=== PATIENT | female | born 1980 ===

== ENCOUNTER 2024-07-13 08:13 | Emergency (ER) | payer OTHER ==
[~2024-07-13] VITALS: Ht 160 cm; Wt 77.1 kg
[2024-07-13] MEDS ORDERED: CEFTRIAXONE SODIUM 1,000 MG VIAL IV ONE (09:45)
[2024-07-13] MEDS ORDERED: KETOROLAC TROMETHAMINE 30 MG VIAL IV ONE (09:45)
[2024-07-13] MEDS ORDERED: FAMOtidine 10 MG/ML (4ML VIAL) IV PUSH ONE (09:45)
[2024-07-13] MEDS ORDERED: KETOROLAC TROMETHAMINE 30 MG VIAL ONE (10:03)
[2024-07-13] MEDS ORDERED: FAMOTIDINE/PF 20 MG/2 ML VIAL ONE (10:03)
[2024-07-13] MEDS ORDERED: CEFTRIAXONE SODIUM 1,000 MG VIAL ONE (10:04)
[2024-07-13 11:14] LABS: HEMATOCRIT 31.1 % (36.0-45.00); HEMOGLOBIN 9.6 g/dL (12.0-15.00); MEAN CELL VOLUME 63.5 fL (80.00-100.00); MEAN CORPUSCULAR HEMOGLOBIN 19.6 pg (27.00-32.0); MEAN CORPUSCULAR HGB CONC 30.8 g/dl (32.0-36.0); PLATELET COUNT 401 K/uL (150-450)
[2024-07-13 11:25] LABS: URINE APPEARANCE Clear; URINE BILIRRUBIN Negative (NEGATIVE); URINE BLOOD Negative; URINE COLOR Yellow; URINE GLUCOSE Negative (NEGATIVE); URINE KETONE Negative (NEGATIVE); URINE LEUKOCYTE Negative; URINE NITRATE Negative; URINE PROTEIN Negative (NEGATIVE); URINE UROBILINOGEN 0.2 E.U./dl
[2024-07-13 11:29] LABS: URINE BACTERIA 84.4 uL (0.0-1933); URINE RBC 5.7 uL (0.0-20.8); URINE WBC 2.8 uL (0.0-23.2)
[2024-07-13 12:11] LABS: URINE CAST 0.14 uL (0.0-1.40)
[2024-07-13 12:16] LABS: ALBUMIN 3.9 gm/dL (3.4-5.0); ALKALINE PHOSPHATASE 103 U/L (50-136); ALT/SGPT 17 U/L (12-78); ANION GAP 9 (10.0-20.0); AST/SGOT 8 U/L (15-37); BILIRUBIN TOTAL 0.38 mg/dL (0.3-1.2); BLOOD UREA NITROGEN 11 mg/dL (7-18); BUN CREA RATIO 11 (7.0-25.0); CALCIUM 8.7 mg/dL (8.5-10.1); CARBON DIOXIDE 28 mEq/L (21-32); CHLORIDE 108 mmol/L (98-107); CREATININE SERUM 0.97 mg/dL (0.55-1.02); GLOBULINA 3.5 G/DL (2.4-3.5); GLUCOSE FASTING 107 mg/dL (65-100); OSMOLALITY SERUM 281 MOSM/KG (275-295); POTASSIUM 4.06 mEq/L (3.5-5.1); SODIUM 141 mmol/L (136-145); TOTAL PROTEIN 7.4 gm/dL (6.4-8.2)
[2024-07-13 12:19] LABS: HCG QUANTITATIVE < 1 mUI/mL (1-3)
[2024-07-13] MEDS ORDERED: NORFLEX100MG PO (15:29)
[2024-07-13] MEDS ORDERED: PROTONIX40 MG PO (15:29)
== END 2024-07-13 16:26 | disposition home or self-care (01) ==
LOC: ER 08:13
PROVIDERS: General Practice
DX: K80.20 Calculus of gallbladder without cholecystitis without obstruction (principal); R10.9 Unspecified abdominal pain

== ENCOUNTER 2024-07-15 12:16 | Emergency (ER) | payer OTHER ==
[~2024-07-15] VITALS: Ht 160 cm; Wt 77.1 kg
[~2024-07-15 12:16] MED LIST: NORFLEX100MG PO; PROTONIX40 MG PO
[2024-07-15] MEDS ORDERED: KETOROLAC TROMETHAMINE 60 MG VIAL IM STA (12:54)
[2024-07-15] MEDS ORDERED: ACETAMINOPHEN 500 MG GEL..CAP PO STA (12:54)
[2024-07-15] MEDS ORDERED: ACETAMINOPHEN 500 MG GEL..CAP PO ONE (12:56)
[2024-07-15] MEDS ORDERED: KETOROLAC TROMETHAMINE 60 MG VIAL IM ONE (12:56)
== END 2024-07-15 13:56 | disposition home or self-care (01) ==
LOC: ER 12:25
DX: M54.9 Dorsalgia, unspecified (principal)